=== PATIENT | female | born 1950 | race Caucasian/White ===

== ENCOUNTER 2019-01-12 11:13 | Emergency (ER) | payer OTHER ==
[~2019-01-12] VITALS: Ht 152.4 cm; Wt 70.0 kg
[2019-01-12] MEDS ORDERED: MEDROXYPROGESTER5 MG PO (12:21)
[2019-01-12] MEDS ORDERED: ESTRACE0.5 MG PO (12:22)
[2019-01-12] MEDS ORDERED: SYNTHROID100 MCG PO (12:23)
[2019-01-12] MEDS ORDERED: ELIQUIS5 MG PO (12:24)
[2019-01-12] MEDS ORDERED: METOPROL TAR25 MG PO (12:25)
[2019-01-12] MEDS ORDERED: MINOCYCLINE HYD50 MG PO (12:26)
[2019-01-12] MEDS ORDERED: FLECAINIDE50 MG PO (12:27)
[2019-01-12] MEDS ORDERED: VITAMIN D310000 UNI1 PO (12:31)
[2019-01-12] MEDS ORDERED: TESSALON PER100 MG PO (12:49)
[2019-01-12] MEDS ORDERED: VENTOLIN HFA IN (12:49)
[2019-01-12 12:56] VITALS: BP 126/75
[2019-01-12] MEDS ORDERED: LISINOPRIL10 MG PO (13:19)
== END 2019-01-12 12:56 | disposition home or self-care (01) | DRG 204 ==
LOC: ED 11:13
DX: R05 Cough (principal); R09.81 Nasal congestion; R07.81 Pleurodynia